=== PATIENT | male | born 1990 | race Caucasian/White ===

== ENCOUNTER 2019-08-15 13:07 | Emergency (ER) | payer SELFPAY ==
[2019-08-15 13:25] VITALS: BP 127/76; PULSE 101; RESP 18; TEMP 36.6; O2SAT 92; BMI 24.9
--- NOTE | 2019-08-15 13:40 | XRR_ITS ---
PROCEDURE INFORMATION: Exam: XR Left Knee Exam date and time: 08/15/2019 1:40 PM Age: 29 years old Clinical indication: Pain; Knee; Left; Prior surgery; Additional info: Pain lateral, felt it pop , previous surgery 16 years ago TECHNIQUE: Imaging protocol: XR Left knee. Views: 3 views. COMPARISON: No relevant prior studies available. FINDINGS: Bones/joints: Prior ACL reconstruction has been performed. There is no acute fracture or dislocation. No significant joint space narrowing is identified. There is no joint effusion. Soft tissues: Normal. XR/XR knee LT 3V* [id number] IMPRESSION: 1. Status post ACL reconstruction. 2. No acute abnormality
--- NOTE | 2019-08-15 14:49 | ED_ITS ---
HPI - Extremity Injury (Lower) General: Chief Complaint: Extremity Injury, Lower Stated Complaint: left knee pain Source: patient Mode of arrival: wheelchair Limitations: no limitations History of Present Illness: HPI Narrative: Patient is a very nice 29-year-old male who presents to ED today with complaints of left knee pain after jumping down from a height of approximately 4 feet yesterday. Patient states he immediately felt pain to his left knee. He has a previous ACL repair performed 17 years ago. Patient has not been ambulatory due to pain in the knee. No other injuries or complaints at this time MD complaint: knee injury Injury: Left: knee Place: home Severity: moderate Relieving factors: immobilization Exacerbating factors: weight bearing, movement and palpation Associated symptoms: Reports inability to bear weight Other symptoms: none Review of Systems Musc: Reports: joint pain (L knee); Denies: neck pain, back pain, extremity pain, extremity swelling or joint swelling Neuro: Denies: numbness in extremities or sensory changes PFSH ED PFSH: Social History Smoking and tobacco status: never smoked Physical Exam Const: COMMON NORMALS: no acute distress, average body habitus, patient oriented x3, no limitations, healthy appearing, alert and well nourished Extremity: GENERAL: Yes normal exam except as noted OTHER: TTP L medial knee; no swelling/effusion present; laxity testing not performed as patient could not tolerate well; pain with flex/ext Neuro: COMMON NORMALS: patient oriented x3 and no sensory deficits noted SENSORIUM/ORIENTATION: Yes alert Course Vital Signs: Vital signs: Vital Signs Temperature 97.8 F 08/15/19 13:25 Pulse Rate 101 H 08/15/19 13:25 Respiratory Rate 18 08/15/19 13:25 Blood Pressure 127/76 08/15/19 13:25 Pulse Oximetry 92 08/15/19 13:25 MDM - Extremity Injury (Lower) MDM Narrative: Medical decision making narrative: pt has crutches/knee immobilizer at home he can use; will set up with PCP for further evaluation and MRI if indicated Imaging Data^: L knee XR: Radiologist's impression: [address] [address] XRay Report Signed Patient: Peter Fields Unit #: [id number] : 1990 Age/Sex: 29 / M ADM Date: 08/15/19 Loc: ER Room/Bed: Attending Dr: Ordering Provider/Ordering MD: Cheryl Hemphill Date of Service: 08/15/19 Procedure(s): XR knee LT 3V* [id number] Accession Number(s): [id number] Report Number: [id number] PROCEDURE INFORMATION: Exam: XR Left Knee Exam date and time: 08/15/2019 1:40 PM Age: 29 years old Clinical indication: Pain; Knee; Left; Prior surgery; Additional info: Pain lateral, felt it pop , previous surgery 16 years ago TECHNIQUE: Imaging protocol: XR Left knee. Views: 3 views. COMPARISON: No relevant prior studies available. FINDINGS: Bones/joints: Prior ACL reconstruction has been performed. There is no acute fracture or dislocation. No significant joint space narrowing is identified. There is no joint effusion. Soft tissues: Normal. XR/XR knee LT 3V* [id number] IMPRESSION: 1. Status post ACL reconstruction. 2. No acute abnormality Dictated By: Alec Levine MD Signed By: Alec Levine MD Signed Date/Time: 08/15/191422 DD/ 20 Discharge Plan Discharge Patient Disposition: Home, Self-Care Clinical Impression: Left medial knee pain Condition: Stable Prescriptions: New ibuprofen 800 mg tablet 800 mg PO Q8H PRN (Reason: pain) Qty: 20 RF: 0 tramadol 50 mg tablet 50 mg PO Q6H PRN (Reason: pain) Qty: 14 RF: 0 Discharge Orders: Discharge Order (Routine); Ordered 08/15/19 Ordered By: Cheryl Hemphill Patient Instructions: Knee Pain (ED), RICE Therapy (ED) Activity Restrictions/Additional Instructions: As discussed you may use the crutches and knee immobilizer as needed. Weight bearing as tolerated. Ice and elevate the extremity. Case management will contact you to set you up with a primary care provider who can further evaluate you and order MRI if indicated. Coding Level of Care Code ED Deputy County Attorney for Chg Fwd Exam Expanded Problem Focused
[2019-08-15 16:11] VITALS: BP 125/97; PULSE 68; RESP 18; O2SAT 99
--- NOTE | 2019-08-15 16:15 | PC.NURSE ---
pt refused immobilzer and crutches stating he has some at home
--- NOTE | 2019-08-15 17:33 | PC.NURSE ---
PAtients assessment verified, RN agrees with assessment.
--- NOTE | 2019-08-19 11:28 | DCPLANNER ---
pbx manager had message to speak with patient about getting established with a primary care physician. pbx manager called patient at [phone], unable to speak with patient at this time, a voicemail was left for patient to return caser up phone call.
== END 2019-08-15 16:11 | disposition home or self-care (01) ==
PROVIDERS: Emergency Provider Physician Assistant
DX: M25.562 Pain in left knee (principal)
CPT/HCPCS: 12345; 73562; 99281; 99283

== ENCOUNTER 2020-10-16 15:55 | Emergency (ER) | payer BC, MEDICAID, SELFPAY ==
[2020-10-16] VITALS (10 sets, daily range): BP systolic 102–143; BP diastolic 46–80; PULSE 74–115; RESP 16–25; TEMP 36.8; O2SAT 93–99; BMI 24.3
[2020-10-16 16:06] LABS: ABG PCO2 29.9 mmHg (35-45); ABG PH Result 7.26 (7.35-7.45); Alveolar-Arterial Oxygen Gradi 61.5 mmHg (5-10); Arterial Blood Gas Hematocrit 49.3 % (42-52); Base Excess ABG -12.4 mmol/L (-2.0-2.0); Blood Gas Allen Test Pos; Blood Gas Operator Identificat MONRO; Blood Gas Sample Site Radial, right; Blood Gas Sample Type Arterial; Carboxyhemoglobin 0.3 %THgb (0.4-20.1); HCO3 ABG 13.2 mmol/L (22-26); HGB O2 Sat 98.6 % (95-100); Ionized Calcium Level - ABG 1.1 mmol/L (1.1-1.4); Methemoglobin 0.7 % (0.4-1.5); Oxygen Device NRB; Oxygen Saturation ABG 99.5; Potassium Level - ABG 3.2 mmol/L (3.5-5.0); Total Hemoglobin 16.1 g/dL (14-18)
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
== END 2020-10-16 20:20 | disposition home or self-care (01) ==
PROVIDERS: Emergency Provider Family Medicine
DX: T59.811A Toxic effect of smoke, accidental (unintentional), initial encounter (principal)
CPT/HCPCS: 36600; 71250; 80051; 82330; 82805; 94640; 99284; J7611

== ENCOUNTER → 2021-01-18 09:50 | Outpatient (BNVA) | payer BC, SELFPAY | PROVIDERS: Visit Provider Physician Assistant | DX: M25.571 Pain in right ankle and joints of right foot (principal) | CPT/HCPCS: 73610 ==

== ENCOUNTER 2023-05-10 22:22 | Emergency (ER) | payer SELFPAY ==
[2023-05-10 22:26] VITALS: BP 138/84; PULSE 86; RESP 16; TEMP 36.7; O2SAT 99; BMI 25.8
--- NOTE | 2023-05-10 22:36 | XRR_ITS ---
PROCEDURE INFORMATION: Exam: XR Right Tibia and Fibula Exam date and time: 05/10/2023 10:44 PM Age: 33 years old Clinical indication: Injury or trauma; Patient HX: Stepped wrong, pain lower leg just above ankle TECHNIQUE: Imaging protocol: Radiologic exam of the right tibia and fibula. Views: 2 views. COMPARISON: CR (LOW EXM, ) 05/10/2023 10:44 PM FINDINGS: Bones/joints: Chronic healed avulsion fracture and/or ununited accessory ossification center and/or chronic posttraumatic arthritis over the inferior tip of the lateral malleolus. Soft tissues: Normal. XR/XR tibia fibula RT 2V [id number] IMPRESSION: No acute findings.
--- NOTE | 2023-05-10 22:36 | XRR_ITS ---
PROCEDURE INFORMATION: Exam: XR Right Ankle Exam date and time: 05/10/2023 10:44 PM Age: 33 years old Clinical indication: Injury or trauma; Patient HX: Stepped wrong, pain lower leg just above ankle TECHNIQUE: Imaging protocol: Radiologic exam of the right ankle. Views: 3 or more views. COMPARISON: CR XR ankle RT min 3V* [id number] 01/18/2021 9:58 AM FINDINGS: Bones/joints: Chronic healed avulsion fracture and/or ununited accessory ossification center and/or chronic posttraumatic arthritis over the inferior tip of the lateral malleolus. Soft tissues: Normal. XR/XR ankle RT min 3V* [id number] IMPRESSION: No acute findings.
--- NOTE | 2023-05-10 22:37 | W.ED.EXTPRO ---
HPI - Extremity Problem General: Chief complaint: Extremity Injury, Lower Stated complaint: right leg injury Time Seen by Provider: 05/10/23 22:35 History of Present Illness: 33-year-old male patient comes in today for injury to the right ankle and lower leg. Patient reports was walking across the yard when he stepped into a hole causing him to twist his ankle feeling a pop in his mid leg. Patient since then has had difficulty with bearing weight to the extremity. No obvious deformity is noted. Patient is guarded with weightbearing. Patient appears nontoxic. Patient appears in mild pain. Review of Systems General: Reports: 10 or more systems reviewed and unremarkable except in HPI and below Musc: Reports: extremity pain PFS ED PFSH: Social History Smoking and tobacco/nicotine status: never used tobacco/nicotine Physical Exam Const: COMMON NORMALS: alert HENMT: COMMON NORMALS: normocephalic HEAD & SCALP: normocephalic Neck/C-Spine: COMMON NORMALS: full ROM Chest: COMMONS NORMALS: normal inspection of the chest Resp: COMMON NORMALS: normal respiratory effort Cardio: COMMON NORMALS: regular rate RATE: regular rate Back/Pelvis: COMMON NORMALS: thoracic and lumbar spine normal to inspection Extremity: RIGHT LOWER EXTREMITY: Yes foot & digits (Tenderness no obvious deformity) Neuro: SENSORIUM/ORIENTATION: Yes alert Skin: COMMON NORMALS: turgor normal GENERAL SKIN EXAM: turgor normal Course Vital Signs: Vital signs: Vital Signs Temperature 98.0 F 05/10/23 22:26 Pulse Rate 86 05/10/23 22:26 Respiratory Rate 16 05/10/23 22:26 Blood Pressure 138/84 05/10/23 22:26 Pulse Oximetry 99 05/10/23 22:26 Oxygen Delivery Me thod Room Air 05/10/23 22:26 MDM - Extremity (Nontraumatic) Medical Decision Making 33-year-old male patient comes in for evaluation of injury to the right lower extremity. Patient appears nontoxic. Patient appears in no acute distress. Patient has some mild bruising to the lateral aspect of the ankle with minimal swelling. Differential diagnosis includes fracture, sprain, contusion. Recommended elastic bandage and crutches. Recommend follow-up with primary care or ankle and insurance follow up specialist for further evaluation and treatment. Patient reported understanding and agreed to plan. XR interpretation done by ED provider, pending radiology final review Discharge Plan Discharge Patient Disposition: Home Clinical Impression: High ankle sprain of right lower extremity Qualifiers: Encounter type: initial encounter Qualified Code(s): S93.491A - Sprain of other ligament of right ankle, initial encounter Condition: Stable Prescriptions: No Action No Known Home Medications Discharge Orders: Discharge ED (Routine); Ordered 05/10/23 Ordered By: Sj Ashraf Discharge Diet: Usual diet Discharge Activity: Increase activity as tolerated Patient Instructions: Ankle Sprain (ED) Activity Restrictions/Additional Instructions: Home and rest. Activity as tolerated. Use crutches until he can bear weight comfortably on it. Follow-up with foot and ankle surgeon for further evaluation and treatment for persistent symptoms. Return to ED for new concerns. Elevate ankle and ice packs for pain. Use acetaminophen and ibuprofen for further pain. Use an elastic bandage for comfort. Coding Level of Care Code ED Publications Sales Representative for Stan Flynn
--- NOTE | 2023-05-11 01:25 | DCPLANNER ---
Message sent to podiatry for a follow up on ankle injury.
== END 2023-05-10 23:18 | disposition home or self-care (01) ==
PROVIDERS: Emergency Provider Nurse Practitioner Family
DX: S93.491A Sprain of other ligament of right ankle, initial encounter (principal); X50.1XXA Overexertion from prolonged static or awkward postures, initial encounter
CPT/HCPCS: 73590; 73610; 99283; E0114

== ENCOUNTER → 2023-09-26 11:40 | Outpatient (BNVA) | payer SELFPAY | PROVIDERS: Visit Provider Physician Assistant | DX: M25.561 Pain in right knee (principal); M25.562 Pain in left knee; M23.301 Other meniscus derangements, unspecified lateral meniscus, left knee; M23.302 Other meniscus derangements, unspecified lateral meniscus, unspecified knee | CPT/HCPCS: 73560; 73565 ==

== ENCOUNTER 2023-12-19 08:00 | Day surgery (SDC) | payer SELFPAY ==
[2023-12-19] VITALS (11 sets, daily range): BP systolic 101–131; BP diastolic 58–80; PULSE 55–73; RESP 10–17; TEMP 36.1–36.6; O2SAT 97–100; BMI 25.0
[2023-12-19] MEDS: ketorolac 30 mg/mL INJ IVP (08:32)
[2023-12-19] MEDS: scopolamine 1.5 Patch 1 PATCH TRANSDERMA (08:32)
[2023-12-19] MEDS: acetaminophen 1,000 MG/100 ML PIGGYBACK 400 MG IV (08:33)
[2023-12-19] MEDS: sodium chloride 0.9% 1,000 ML 30 ML IV (08:34)
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
[2023-12-19] MEDS: ceFAZolin 2,000 MG in sodium chloride 0.9% (plus) 50 ML 100 MG IV (10:26)
[2023-12-19] MEDS: lidocaine-epi 1% 20 mL INJ 40 ML INJECTION (11:01)
--- NOTE | 2023-12-19 11:49 | W.PM.BPON ---
Date of Procedure: [December 19, 2023] Surgeon: [Dr. 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 Patellofemoral compartment grade I chondromalacia.]
--- NOTE | 2023-12-19 12:03 | PM.OP ---
Operative Report Date of procedure: December 19, 2023 Surgeon: Asad Esteves DO Procedure: Preoperative diagnosis: Left knee medial meniscus tear Post-op diagnosis: Left?knee bucket-handle medial meniscus tear Left knee extensive synovitis Procedure done: Left?knee diagnostic and surgical arthroscopy partial medial meniscectomy Left?knee diagnostic and surgical arthroscopy with extensive synovectomy of the medial lateral and patellofemoral compartments Surgeon: Asad Esteves DO Estimated blood loss: 2mL Tourniquet: No tourniquet was used IV fluids: See anesthesia record Complications: None Findings: See operative report narrative Condition: stable Disposition: same day Brief History: Patient is a 34-year-old male with Left?knee pain.? Patient has failed conservative treatment who has been worked up for Left??knee pain in the outpatient setting. MRI findings consistent with tear of the medial meniscus. talked in the office about treatment options patient would like to proceed with a Left?knee diagnostic and surgical arthroscopy with partial medial meniscectomy versus repair. Patient understand the ins and outs of the procedure the risk benefits complication alternatives to treatment options.? Understanding risk of surgery they agree to proceed with surgical intervention.? Patient understand this may not provide patient with complete symptomatic relief of? pain as patient does have some underlying arthritis.? Understanding this and patient agree to proceed with surgical intervention all questions answered. Procedure: Patient seen and evaluated in the preoperative holding area.? Consent was reviewed and signed with patient.? Correct extremity was then marked.? Patient seen evaluated Anesthesia Department once cleared for surgery patient was taken back to the operative suite.? Patient was transported onto the OR table in supine position.? All bony prominences well-padded patient was appropriate secured to the bed.? Once appropriately anesthetized a nonsterile tourniquet was applied to the Left thigh.? The Left lower extremity was then prepped and draped in standard orthopedic fashion.? Final timeout performed.? Patient received appropriate preoperative antibiotics. Patient received local anesthetic of lidocaine with epinephrine into the joint as well as around the portal sites.? No tourniquet was inflated A standard 2 portal vertical incision diagnostic and surgical arthroscopy of the Left?knee was performed in standard fashion.? Small stab incision made in the inferolateral portal introduced trocar and arthroscope into the suprapatellar pouch.? Suprapatellar pouch was subsequently visualized and found to have significant synovitis but no loose bodies.? Patient had noticeable significant inflamed infrapatellar fat pad and thickening hypertrophic within the patellofemoral compartment.? ?The medial gutter was free of loose bodies I then introduced the arthroscope into the medial compartment.? Within the medial compartment I then established my inferior medial working portal utilizing spinal needle outside in technique.? Once established I then visualized our articular cartilage of the medial compartment with a valgus stress.? Patient was found to have grade 1-2 chondromalacia throughout the medial compartment.? Next I inspected the meniscus.? Immediately on encountering the medial compartment patient had a complex bucket-handle meniscus tear with multiple components and directional tears. Unfortunately this was unable to be repaired given the complex city of the tear and its location. At this point in time decision was made for a partial meniscectomy. I removed all unstable meniscal tissue to stable meniscal tissue with a basket forceps and arthroscopic shaver. Unfortunately given the complex of the tear and the chronicity of this was roughly 50% of patient's meniscus was removed. Posterior root was intact. I then performed an extensive synovectomy of the medial compartment and this completed my complete medial compartment work as there is no significant chondromalacia. Next a introduced the arthroscope to the intercondylar notch.? PCL and ACL were intact. Patient's previous ACL was intact. Patient had significant thickening of the infrapatellar fat pad spanning into the medial and lateral compartments.? I then performed an extensive synovectomy with the arthroscopic shaver of the patellofemoral medial and lateral compartments as well as the intercondylar notch. Advance the?scope into the retrocruciate space and no loose bodies were found. Next I introduced the arthroscope into the lateral compartment the lateral compartment was found to have grade 1 chondromalacia.? Lateral meniscus was found to be intact.? The root was intact.? Given the grade 1 chondromalacia there is no unstable cartilage pieces to perform chondroplasty.? This completed my work of the lateral compartment and then performed a synovectomy of the lateral compartment.? Next of the arthroscope was placed into the lateral gutter and this was free of loose bodies.? Finally I reintroduced the arthroscope into the patellofemoral compartment.? The patellofemoral was found to have grade 1 chondromalacia of the patellofemoral compartment.? At this point I utilized arthroscopic shaver as well as thermal wand to perform extensive synovectomy of the patellofemoral compartment. This completed my work of the patellofemoral space.? I then switch my portal sites to the medial working portal.? Completed the rest of my synovectomy and the rest of my examination arthroscopy was normal. All fluid was suctioned from the joint.? ?All instruments were withdrawn.? Portal sites were closed with interrupted nylon suture.? portal sites were then covered with with Xeroform 4 x 4's ABD Curlex and Quirino wrap.? Patient was then subsequently awakened from anesthesia and taken to PACU in stable condition. Disposition: Patient taken to PACU in stable condition recovering well.? Will receive appropriate discharge structure as well as pain medication postoperatively as well as? DVT prophylaxis.we will have patient follow-up with us in the office in 2 weeks.? We will weightbearing as tolerated to the Left lower extremity utilize crutches or walker as needed encourage knee range of motion as patient can tolerate. Patient understands and agrees with current plan.? All questions answered.
--- NOTE | 2023-12-19 13:20 | ANE.PACU2 ---
Inpatient post-anesthesia follow up: Airway intact: Yes Vital signs: Temperature 97.5 F Pulse Rate 67 Respiratory Rate 17 Blood Pressure 112/78 Pulse Oximetry 99 Oxygen Delivery Me thod Room Air Oxygen Flow Rate 8 Fraction of Inspir ed Oxygen Hydration adequate: Yes Nausea and vomiting: No Pain level: 1 Mental status: Baseline
== END 2023-12-19 13:25 | disposition home or self-care (01) ==
PROVIDERS: Visit Provider Student in an Organized Health Care Education/Training Program
PROC: (CPT 29870; principal; 2023-12-19 10:20)
DX: S83.212A Bucket-handle tear of medial meniscus, current injury, left knee, initial encounter (principal); X58.XXXA Exposure to other specified factors, initial encounter; M65.9 Synovitis and tenosynovitis, unspecified; Z79.82 Long term (current) use of aspirin
CPT/HCPCS: 29876; 29881; J0131; J0690; J1100; J1885; J2250; J2405; J2704; J3010; J7030